=== PATIENT | male | born 2000 | race Caucasian/White ===

== ENCOUNTER 2020-09-10 20:40 | Emergency (ER) | payer OTHER, SELFPAY ==
[2020-09-10 20:50] VITALS: BP 136/71; PULSE 71; RESP 19; TEMP 36.9; O2SAT 99; BMI 18.8
--- NOTE | 2020-09-10 20:51 | XR_ITS ---
PROCEDURE: XR FOOT LT MIN 3V CLINICAL INDICATION: SKATEBOARDING ACCIDENT Pain COMPARISON: No exams were available for comparison FINDINGS: No fracture or dislocation. No lytic or blastic change. There is normal mineralization. The joint spaces are well-preserved. No significant degenerative/arthritic changes. No erosive changes evident. Other findings:Lucency is noted along the anterior and proximal aspect of the navicular. This is well-circumscribed with corticated margins and may represent an old fracture. Please correlate as the patient's area pain and tenderness. The navicular somewhat flattened IMPRESSION: 1. No definite acute fracture. 2. Probable old fracture or ununited ossification center along the anterior aspect of the navicular with mild non-specific flattening of the navicular Dictated by: John Pollack MD 09/11/2020 05:32 John Pollack MD in [place] 09/11/2020 05:32
--- NOTE | 2020-09-10 20:51 | XR_ITS ---
PROCEDURE: XR ANKLE LT MIN 3V CLINICAL INDICATION: SKATEBOARD ACCIDENT Pain COMPARISON: No exams were available for comparison FINDINGS: Mild soft tissue swelling is present along the lateral malleolar region. No fracture or dislocation. IMPRESSION: Soft tissue swelling otherwise negative Dictated by: John Pollack MD 09/11/2020 05:30 John Pollack MD in [place] 09/11/2020 05:30
--- NOTE | 2020-09-10 21:07 | HMH.EDUTC ---
[facility] [place] Clinical Impression: Left ankle sprain Qualifiers: Encounter type: initial encounter Involved ligament of ankle: anterior talofibular ligament Qualified Code(s): S93.492A - Sprain of other ligament of left ankle, initial encounter Disposition: Home, Self-Care Condition on Discharge: Good Instructions: DI for Ankle Sprain Additional Instructions: Rest. Stay off foot/ankle as much as possible. Keep propped up. Use ice. Follow up with Dr Hdz on Sunday. Prescriptions: Naproxen [Naproxen 500mg tab] 500 mg PO BID #30 tab Transmission Status: Pending to [id number] Referrals: Luis Alicia [Primary Care Provider] - Alem Hdz DPM [Staff Physician] - Forms: Work/School Release Time of Disposition: 21:11 Medical Decision Making - Doming[place] Inquiry Pt receiving controlled substance: No Vital Signs: 09/10/20 20:50 Temperature 98.4 F Temperature Source Oral Pulse Rate [Right Brachial] 71 Respiratory Rate 19 Blood Pressure [Right Arm] 136/71 Blood Pressure Mean [Right Arm] 92 Blood Pressure Source [Right Arm] Automatic Cuff Blood Pressure Position [Right Arm] Sitting 02 Sat by Pulse Oximetry 99 Oxygen Delivery Method Room Air Orders (Tests/Meds): ORDERS Category Date Time Status XR ankle LT min 3V Stat Exams 09/10/20 20:51 Taken XR foot LT min 3V Stat Exams 09/10/20 20:51 Taken - Radiology Data #1 Image(s): Ankle Image Reviewed: Yes I reviewed the patient's radiology image Preliminary Findings: Normal/NAD, No Fracture Seen #2 Image(s): Foot/Toes Image Reviewed: Yes I reviewed the patient's radiology image, Yes I have reviewed radiologist's interpretation Preliminary Findings: Normal/NAD, No Fracture Seen [facility] [place] HPI - General Stated complaint: AO 0305 @1700 injured l ankle Time Seen by Provider: 09/10/20 21:07 Mode of Arrival: Ambulatory Source of Information: Patient Limitations: No Limitations Description of Symptoms (Recalled from Triage Doc. by RN): PATIENT C/O INJURY TO LEFT ANKLE AND FOOT AFTER FALLING OFF OF SKATEBOARD APPROX 1800 TODAY HEENT Symptoms (Recalled from RN notes): No Resp Symptoms (Recalled from RN notes): No Skin Symptoms (Recalled from RN notes): No MS Symptoms (Recalled from RN notes): Yes Functional Status (Recalled from RN notes): WNL - History of Present Illness Provider Complaint: Patient was skateboarding, fell off board into hole approximately 4 hours ago. Rolled ankle inward and felt something snap. Had immediate swelling. He is weight bearing but it is shooting pain up his lower leg. Onset (ago): hour(s) (4) Location: left, lower extremity Relieving factors: none Exacerbating factors: none Associated symptoms: denies other symptoms Treatments prior to arrival: none - Related Data Previous Rx's Medication Instructions Recorded Naproxen [Naproxen 500mg tab] 500 mg PO BID #30 tab 09/10/20 Allergies Allergy/AdvReac Type Severity Reaction Status Date / Time No Known Allergies Allergy Verified 09/10/20 21:06 - Worker's Comp Is this a Worker's Comp case?: No [facility] History - Hepatitis A Screen Drug use history?: No High risk sexual behaviors?: No History of sexually transmitted infection?: No Currently employed?: No Childcare worker?: No Do you have indoor plumbing?: Yes Do you have electricity?: Yes Attestation statement:: This patient has been screened for Hepatitis A risk factors. I have reviewed the patient's past medical history: Yes - Social History Alcohol Intake: never Occupational Status: other ROS Obtained: Yes All systems reviewed & no additional complaints - Musculoskeletal Musculoskeletal: Reports as per HPI, Reports joint pain Physical Exam - General General appearance: alert, in no apparent distress - Head Head exam: normocephalic - Eye Eye exam: Present: PERRL - ENT ENT exam: Present: normal oropharynx - Respiratory Respiratory exam: Present: von
[2020-09-10 21:14] VITALS: BP 136/71; PULSE 71; RESP 19; TEMP 36.9; O2SAT 99
== END 2020-09-10 21:19 | disposition home or self-care (01) ==
PROVIDERS: Emergency Provider Physician Assistant; PCP Pediatrics
DX: S93.492A Sprain of other ligament of left ankle, initial encounter (principal); W18.30XA Fall on same level, unspecified, initial encounter; Y93.51 Activity, roller skating (inline) and skateboarding; Y92.89 Other specified places as the place of occurrence of the external cause
CPT/HCPCS: 29515; 73610; 73630; 99202; G0463